=== PATIENT | male | born 2000 | race Caucasian/White ===

== ENCOUNTER 2020-04-23 15:24 | Emergency (ER) | payer BC, OTHER ==
[2020-04-23 15:32] VITALS: BP 137/65; PULSE 90; RESP 18; TEMP 97.6
[2020-04-23] MEDS ORDERED: DIPH,PERTUS(ACELL)TETVAC-LF 0.5 ML VIAL IM ONE (15:40)
--- NOTE | 2020-04-23 15:57 | XR ---
EXAMINATION TYPE: XR hand complete LT DATE OF EXAM: 04/23/2020 COMPARISON: NONE HISTORY: 20-year-old male laceration along the first metacarpal, pain. TECHNIQUE: 3 views FINDINGS: No acute fracture, subluxation, dislocation. There is some dorsal site is soft tissue injury along th e proximal to mid metacarpal level on the lateral view. No underlying acute fracture, subluxation or dislocation. No retained radiopaque foreign body seen. IMPRESSION: Some dorsal sided soft tissue injury at the proximal to mid metacarpal level. No retained radiopaque foreign body or acute osseous abnormality seen.
[2020-04-23] MEDS ORDERED: BACITRACIN OINT 1 EACH PACKET TOPICAL ONE (16:20)
--- NOTE | 2020-04-23 16:20 | ED ---
Wound/Laceration HPI - General Chief Complaint: Wound/Laceration Stated Complaint: Hand laceration Time Seen by Provider: 04/23/20 15:40 Source: patient Mode of arrival: ambulatory Limitations: no limitations - History of Present Illness Initial Comments: 20-year-old male presenting for left hand laceration. Patient states he cut himself while he is alejandra he states it was with a knife. he states the cut was on the dorsal aspect of the hand near base of thumb. no additional injuries. unsure of last tetanus. denies limited ROM or strength of thumb or other digits of the hand. No additional complaints. upon arrival patient appears well nontoxic in no acute distress. - Related Data Home Medications Medication Instructions Recorded Confirmed Acetaminophen-Codeine 300-30mg 1 tab PO Q8H PRN 11/13/15 11/13/15 [Tylenol #3] Dextroamphetamine/Amphetamine 30 mg PO QAM 11/13/15 11/13/15 [Adderall Xr] Ibuprofen [Motrin] 1 tab PO TID PRN 11/13/15 11/13/15 Previous Rx's Medication Instructions Recorded HYDROcodone/APAP 5-325MG [[place] 5] 1 - 2 each PO Q4-6H PRN #60 tab 11/13/15 Allergies Allergy/AdvReac Type Severity Reaction Status Date / Time No Known Allergies Allergy Verified 04/23/20 15:31 Review of Systems ROS Statement: Those systems with pertinent positive or pertinent negative responses have been documented in the HPI. ROS Other: All systems not noted in ROS Statement are negative. Past Medical History Past Medical History: No Reported History History of Any Multi-Drug Resistant Organisms: None Reported Past Surgical History: No Surgical Hx Reported Additional Past Surgical History / Comment(s): left elbow surgery, tubes in paty ateral ears Past Anesthesia/Blood Transfusion Reactions: No Reported Reaction Past Psychological History: ADD/ADHD Smoking Status: Current every day smoker Past Alcohol Use History: Occasional Past Drug Use History: Marijuana - Past Family History Father Family Medical History: Myocardial Infarction ([place]) General Exam - General Exam Comments Initial Comments: General: The patient is awake and alert, in no distress Eye: Pupils are equal, round and reactive to light, extra-ocular movements are intact. No nystagmus. There is normal conjunctiva bilaterally. No signs of icterus. Ears, nose, mouth and throat: There are moist mucous membranes and no oral lesions. Musculoskeletal: Normal ROM, no tenderness. Strength 5/5. Sensation intact. [place]; ulses equal bilaterally 2+. Neurological: A&O x 3. CN II-XII intact grossly, There are no obvious motor or sensory deficits. Coordination appears grossly intact. Speech is normal. Skin: Skin is warm and dry and no rashes. clean 2cm laceration dorsum of left hand near base of thumb. linear. no foreign body, no tendon exposure. Psychiatric: Cooperative, appropriate mood & affect, normal judgment. Limitations: no limitations Course Vital Signs 04/23/20 15:26 Temperature 97.6 F Pulse Rate 90 Respiratory 18 Rate Blood Pressure 137/65 O2 Sat by Pulse 98 Oximetry Procedures - Laceration Laceration #2 Consent Obtained: verbal consent Indication: laceration Site: hand Size (cm): 2 Description: linear Depth: simple, single layer Pre-repair: wound explored, irrigated extensively, deep structures intact Type of Sutures: nylon Size of Sutures: 5-0 Number of Sutures: 3 Technique: simple, interrupted Patient Tolerated Procedure: well, no complications Medical Decision Making - Medical Decision Making 20yo male presenting for cc of hand laceration. refused local anesthetic. cleansed/irrigated. closed. tolerated well denied significant pain. return/care discussed patient discharged appearing well. Disposition Clinical Impression: Hand laceration Disposition: HOME SELF-CARE Condition: Good Instructions (If sedation given, give patient instructions): Care For Your Stitches (ED), Laceration (ED) Additional Instructions: Please use medication as discussed. Please follow-up for suture removal in 7-10 days. Please return to emergency room if the symptoms increase or worsen or for any other concerns. Is patient prescribed a controlled substance at d/c from ED?: No Referrals: Jake Oneill MD [Primary Care Provider] - 1-2 days Time of Disposition: 16:20
== END 2020-04-23 16:33 | disposition home or self-care (01) ==
LOC: EC 15:24
DX: S61.412A Laceration without foreign body of left hand, initial encounter (principal); F90.9 Attention-deficit hyperactivity disorder, unspecified type; F17.200 Nicotine dependence, unspecified, uncomplicated; Z79.899 Other long term (current) drug therapy; Z23 Encounter for immunization; W26.0XXA Contact with knife, initial encounter; Y93.89 Activity, other specified
CPT/HCPCS: 12001; 90471; 90715; 99283